=== PATIENT | male | born 1945 | race Caucasian/White ===

== ENCOUNTER 2016-10-05 14:49 | Emergency (ER) | payer OTHER ==
[~2016-10-05] VITALS: Ht 182.9 cm; Wt 97.3 kg
[~2016-10-05 14:49] MED LIST: NITROGLYCERIN0.4 MG SL
[2016-10-05 15:23] LABS: MCH 29.8 PG (29.0-34.0); MCHC 34.5 G/DL (30.0-36.0); MCV 86.2 FL (86-99); MEAN PLAT.VOLUME 8.7 uM^3 (9.0-12.4); PLATELET COUNT 268 K/uL (156-360); RBC DIS.WIDTH-CV 13.5 % (11.8-14.6); RED BLOOD COUNT 4.87 M/uL (4.00-5.50)
[2016-10-05 15:38] LABS: CHLORIDE 105 mEq/L (99-109); SODIUM 139 mEq/L (136-147)
[2016-10-05 15:40] LABS: GLUCOSE 132 mg/dL (70-99)
[2016-10-05 15:42] LABS: ANION GAP 11 MEQ/L (2-14); TOTAL BILIRUBIN 0.4 mg/dL (0.0-1.0)
[2016-10-05 15:44] LABS: ALKALINE PHOSPHATASE 73 IU/L (3-129); GFR ESTIMATE (CALCULATED) > 59 mL/min/
[2016-10-05 15:45] LABS: UREA NITROGEN (BUN) 13 mg/dL (9-23)
[2016-10-05 17:41] LABS: ADD MIUA? YES; BILIRUBIN NEGATIVE; BLOOD MODERATE; COLOR YELLOW ((YELLOW)); GLUCOSE (STRIP) NEGATIVE; KETONES NEGATIVE; LEUKOCYTES NEGATIVE; NITRITE NEGATIVE; PROTEIN (STRIP) NEGATIVE; SPECIFIC GRAVITY 1.024 (1.000-1.030); UROBILINOGEN 0.2 MG/DL (0.2-1.0)
[2016-10-05 17:49] LABS: BACTERIA NONE SEEN /HPF; EPITHELIAL CELLS NONE SEEN /HPF; HYALINE CASTS 0-5 /LPF; MUCUS TRACE /LPF; RED BLOOD CELLS 0-5 /HPF (0-5); UCUL ADDED? NO; UNCLASSIFIED CRYSTALS 2+ /HPF; WHITE BLOOD CELLS 0-5 /HPF (0-5)
[2016-10-05] MEDS ORDERED: FLAGYL500 MG PO (19:30)
[2016-10-05] MEDS ORDERED: CIPRO500 MG PO (19:30)
[2016-10-05 19:55] VITALS: BP 127/88
== END 2016-10-05 19:56 | disposition home or self-care (01) ==
LOC: EME 14:49
DX: K52.9 Noninfective gastroenteritis and colitis, unspecified (principal); Z87.19 Personal history of other diseases of the digestive system; Z87.891 Personal history of nicotine dependence
CPT/HCPCS: 74176; 80053; 81003; 85027; 99281; 99284

== ENCOUNTER 2017-11-29 16:53 | Inpatient (IN) | payer OTHER ==
[~2017-11-29] VITALS: Ht 180.3 cm; Wt 96.4 kg
[2017-11-29] VITALS (19 sets, daily range): BP systolic 110–135; BP diastolic 58–83
[~2017-11-29 16:53] MED LIST changes: +CIPRO500 MG PO; +FLAGYL500 MG PO
[2017-11-29 17:17] LABS: BASOPHIL (%) 0.2 % (0-1); EOSINOPHIL (%) 0.3 % (0-5); HEMATOCRIT 41.4 % (38.0-50.0); IMMATURE GRANULOCYTE (%) 0.3 % (0.0-0.7); LYMPHOCYTE (%) 14.8 % (15-42); LYMPHOCYTE COUNT 1.7 K/uL (1.0-2.8); MCH 30.6 PG (29.0-34.0); MCHC 33.8 G/DL (30.0-36.0); MCV 90.6 FL (86-99); MONOCYTE COUNT 1.3 K/uL (0-0.8); NEUTROPHIL (%) 73.4 % (45-76); NEUTROPHIL COUNT 8.5 K/uL (1.8-6.4); PLATELET COUNT 236 K/uL (156-360); RBC DIS.WIDTH-CV 13.8 % (11.8-14.6); RBC DIS.WIDTH-SD 46.1 % (39-53); RED BLOOD COUNT 4.57 M/uL (4.00-5.50); WHITE BLOOD COUNT 11.6 K/uL (4.1-10.2)
[2017-11-29 17:23] LABS: INTER. NORMALIZED RATIO 1.1
[2017-11-29 17:25] LABS: PTT 32.3 SEC (25-37)
[2017-11-29 17:34] LABS: AMYLASE 26 IU/L (1-118); CHLORIDE 104 mEq/L (99-109); SODIUM 139 mEq/L (136-147)
[2017-11-29 17:35] LABS: GLUCOSE 160 mg/dL (70-99)
[2017-11-29 17:37] LABS: TROP-I INTERPRETATION NEGATIVE; TROPONIN-I 0.12 ng/mL (0.0-0.30)
[2017-11-29 17:39] LABS: CREATININE 1.4 mg/dL (0.6-1.3); GFR ESTIMATE (CALCULATED) 53 mL/min/ (58.99-99999); SERUM ETHYL ALCOHOL < 10 mg/dL
[2017-11-29 17:40] LABS: UREA NITROGEN (BUN) 22 mg/dL (9-23)
[2017-11-29 17:42] LABS: LIPASE 19 U/L (1.0-51.0)
[2017-11-29 20:26] LABS: APPEARANCE CLEAR ((CLEAR)); BILIRUBIN NEGATIVE; BLOOD LARGE; COLOR YELLOW ((YELLOW)); GLUCOSE (STRIP) NEGATIVE; KETONES NEGATIVE; LEUKOCYTES NEGATIVE; NITRITE NEGATIVE; PROTEIN (STRIP) NEGATIVE; UROBILINOGEN 0.2 MG/DL (0.2-1.0)
[2017-11-29 20:46] LABS: EPITHELIAL CELLS RARE /HPF; MUCUS NONE SEEN /LPF; RED BLOOD CELLS TNTC /HPF (0-5); WHITE BLOOD CELLS 0-5 /HPF (0-5)
[2017-11-29 20:47] LABS: BACTERIA NONE SEEN /HPF; UCUL ADDED? YES
[2017-11-29 21:42] LABS: AMPHETAMINE NEGATIVE (500 ng/mL); BARBITURATES NEGATIVE (200 ng/mL); BENZODIAZEPINES NEGATIVE (150 ng/mL); BUPRENORPHINE NEGATIVE (10 ng/mL); COCAINE NEGATIVE (150 ng/mL); METHADONE NEGATIVE (200 ng/mL); METHAMPHETAMINE NEGATIVE (500 ng/mL); OPIATES (MORPHINE) NEGATIVE (100 ng/mL); OXYCODONE NEGATIVE (100 ng/mL); PHENCYCLIDINE NEGATIVE (25 ng/mL); PROPOXYPHENE NEGATIVE (300 ng/mL); THC CANNABINOIDS NEGATIVE (50 ng/mL); TRICYCLIC ANTIDEPRESSANTS NEGATIVE (300 ng/mL)
[2017-11-29 22:27] LABS: TROP-I INTERPRETATION INDETERMINATE; TROPONIN-I 0.42 ng/mL (0.0-0.30)
[2017-11-29 23:29] LABS: CK-MB 6.3 ng/mL (0.0-4.9)
[2017-11-29 23:43] LABS: CKMB RELATIVE INDEX 5.9 (0.0-3.9); CREATINE KINASE 107 IU/L (1-294); TOTAL CK 107 IU/L (1-294)
[2017-11-30] VITALS (23 sets, daily range): BP systolic 92–152; BP diastolic 49–88
[2017-11-30 05:51] LABS: BASOPHIL (%) 0.4 % (0-1); EOSINOPHIL (%) 1.1 % (0-5); EOSINOPHIL COUNT 0.1 K/uL (0-0.3); HEMATOCRIT 36.2 % (38.0-50.0); IMMATURE GRANULOCYTE (%) 0.2 % (0.0-0.7); LYMPHOCYTE (%) 29.1 % (15-42); LYMPHOCYTE COUNT 2.9 K/uL (1.0-2.8); MCHC 32.6 G/DL (30.0-36.0); MCV 92.1 FL (86-99); MONOCYTE (%) 10.7 % (3-12); MONOCYTE COUNT 1.1 K/uL (0-0.8); NEUTROPHIL (%) 58.5 % (45-76); NEUTROPHIL COUNT 5.8 K/uL (1.8-6.4); PLATELET COUNT 210 K/uL (156-360); RBC DIS.WIDTH-CV 14.1 % (11.8-14.6); RBC DIS.WIDTH-SD 47.6 % (39-53); RED BLOOD COUNT 3.93 M/uL (4.00-5.50); WHITE BLOOD COUNT 9.9 K/uL (4.1-10.2)
[2017-11-30 05:52] LABS: HEMOGLOBIN 11.8 G/DL (12.5-16.6)
[2017-11-30 06:59] LABS: CHLORIDE 109 MEQ/L (99-109); CREATININE 1.3 MG/DL (0.6-1.3); GFR ESTIMATE (CALCULATED) 58 mL/min/ (58.99-99999); GLUCOSE 115 mg/dL (70-99); HDL CHOLESTEROL 31 MG/DL (Desirable>=40); LDL CHOLESTEROL 95 mg/dL (Desirable<100); NON-HDL CHOLESTEROL 112 mg/dL (Desirable<160); SODIUM 140 MEQ/L (136-147); TOTAL CHOLESTEROL 143 mg/dL (Desirable<200); TRIGLYCERIDES 86 MG/DL (Normal: <150); UREA NITROGEN (BUN) 21 mg/dL (9-23)
[2017-11-30 09:49] LABS: HEMOGLOBIN A1c (GLYCOHEMOGLOB) 5.9 % (Below 5.7)
[2017-11-30 10:01] LABS: TROP-I INTERPRETATION POSITIVE; TROPONIN-I 6.21 ng/mL (0.0-0.30)
[2017-11-30] MEDS ORDERED: DIOVAN320 MG PO (10:44)
[2017-11-30] MEDS ORDERED: CARDURA4 MG PO (10:44)
[2017-11-30] MEDS ORDERED: ASPIR 8181 M1 PO (10:45)
[2017-11-30 11:34] LABS: CREATINE KINASE 358 IU/L (1-294); TOTAL CK 358 IU/L (1-294)
[2017-11-30 11:39] LABS: CKMB RELATIVE INDEX 10.9 (0.0-3.9)
[2017-11-30 11:41] LABS: CK-MB 38.9 ng/mL (0.0-4.9)
[2017-12-01] VITALS (9 sets, daily range): BP systolic 101–131; BP diastolic 56–79
[2017-12-01] MEDS ORDERED: ATORVASTATIN CA40 MG PO (10:28)
[2017-12-01] MEDS ORDERED: EFFIENT10 MG PO (10:28)
[2017-12-01] MEDS ORDERED: NITROSTAT0.4 MG SL (10:28)
[2017-12-01] MEDS ORDERED: LOPRESSOR25 MG PO (10:29)
== END 2017-12-01 11:58 | disposition home or self-care (01) | DRG 247 ==
LOC: EME 16:53 → CANRESERV 17:10 → ENRESERV 17:10 → EME 17:30 → CATH 17:32 → ENRESERV 17:43 → 4WEST 17:55 → 2SOUTH 17:55 → 4WEST 18:43
PROVIDERS: Emergency Medicine; Internal Medicine Interventional Cardiology
DX: I21.19 ST elevation (STEMI) myocardial infarction involving other coronary artery of inferior wall (principal); I48.91 Unspecified atrial fibrillation; I47.2 Ventricular tachycardia; I47.1 Supraventricular tachycardia; I25.10 Atherosclerotic heart disease of native coronary artery without angina pectoris; R73.9 Hyperglycemia, unspecified; I10 Essential (primary) hypertension; N40.0 Benign prostatic hyperplasia without lower urinary tract symptoms; E66.9 Obesity, unspecified; Z68.29 Body mass index [BMI] 29.0-29.9, adult; Z87.891 Personal history of nicotine dependence; Z82.49 Family history of ischemic heart disease and other diseases of the circulatory system; Z79.82 Long term (current) use of aspirin
CPT/HCPCS: 80048; 80061; 81003; 82150; 82550; 82550 91; 82553; 83036; 83690; 84484; 85025; 85347; 85610; 85730; 86850; 86900; 86901; 87086; 87641; 93005; 94799; 99281; 99285; C1725; C1769; C1874; C1887; G0480; J0153; J0461; J1644; J2250; J3010; J3246; J7030